=== PATIENT | male | born 1960 | race Caucasian/White ===

== ENCOUNTER 2018-06-11 09:16 | Day surgery (SDC) | payer BC ==
[~2018-06-11] VITALS: Ht 162.6 cm; Wt 76.9 kg
[2018-06-11] MEDS ORDERED: CLARITIN (10:35)
[2018-06-11] MEDS ORDERED: CHOLESTEROL MED (10:35)
[2018-06-11] MEDS ORDERED: PREVACID (10:35)
[2018-06-11 10:39] VITALS: Ht 162.6 cm; Wt 76.9 kg
[2018-06-11] MEDS ORDERED: LIDOCAINE 4% SOLUTION 50 ML BTL ONE (10:51)
[2018-06-11 11:03] VITALS: BP 157/68; PULSE 94; RESP 18
[2018-06-11] MEDS ORDERED: FENTAnyl 50 MCG/ML VIAL ONE (11:57)
[2018-06-11] MEDS ORDERED: MIDAZOLAM 1 MG/ML 2 ML INJ ONE ×2 (11:57)
[2018-06-11 12:07] VITALS: BP 118/71; PULSE 70; RESP 20
== END 2018-06-11 14:36 | disposition home or self-care (01) ==
LOC: GIL 09:16
PROVIDERS: ATTEND Internal Medicine Gastroenterology
DX: Z12.11 Encounter for screening for malignant neoplasm of colon (principal); K29.30 Chronic superficial gastritis without bleeding; K64.4 Residual hemorrhoidal skin tags
CPT/HCPCS: 88305; 88312; J2250; J3010